=== PATIENT | male | born 1980 | race Caucasian/White ===

== ENCOUNTER 2016-05-13 22:01 | Emergency (ER) | payer OTHER ==
[~2016-05-13] VITALS: Ht 182.9 cm; Wt 65.8 kg
[2016-05-13] MEDS ORDERED: DIAZEPAM 10 MG TABLET PO ONE (22:30)
[2016-05-13] MEDS ORDERED: DIAZEPAM 10 MG TABLET ONE (22:40)
[2016-05-14 01:14] VITALS: BP 127/77
== END 2016-05-14 01:14 | disposition home or self-care (01) ==
LOC: ER 22:03
DX: F41.9 Anxiety disorder, unspecified (principal)
CPT/HCPCS: A4606; Z7610

== ENCOUNTER 2023-05-18 12:18 | Emergency (ER) | payer OTHER ==
[~2023-05-18] VITALS: Ht 180.3 cm; Wt 68.0 kg
[2023-05-18 12:52] VITALS: BP 127/84; TEMP 98.8
[2023-05-18] MEDS ORDERED: AZIT250T PO (13:46)
[2023-05-18 14:07] VITALS: O2SAT 100
== END 2023-05-18 14:08 | disposition home or self-care (01) ==
LOC: ER 12:27
DX: J40 Bronchitis, not specified as acute or chronic (principal); F41.9 Anxiety disorder, unspecified; Z60.2 Problems related to living alone
CPT/HCPCS: 71045-TC